=== PATIENT | female | born 1975 | race African-American/Black ===

== ENCOUNTER 2021-10-16 11:39 | Emergency (ER) | payer BC, SELFPAY ==
[2021-10-16 11:46] VITALS: BP 129/87; PULSE 90; RESP 18; O2SAT 100
--- NOTE | 2021-10-16 12:41 | ECG_ITS ---
Measurements Intervals [place] Rate: 69 P: 60 MA: 100 QRS: 45 QRSD: 101 T: 41 QT: 400 QTc: 431 Interpretive Statements SINUS RHYTHM WITH SHORT MA INTERVAL INCOMPLETE RIGHT BUNDLE BRANCH BLOCK LOW QRS VOLTAGE IN PRECORDIAL LEADS BORDERLINE ECG Electronically Signed On 10-16-2021 13:40:36 LINE [employer]ER by Rachid Ro D.O.
[2021-10-16 13:10] LABS: Basophils Percent Auto 0.4 % (0.2-1.2); Eosinophils Percent Auto 0.6 % (0-4.4); Hematocrit 35.6 % (37.0-47.0); Hemoglobin 12.3 g/dL (12.0-15.0); Immature Granulocyte Absolute 0.01 K/mm3 (0.00-0.031); Immature Granulocyte Percent A 0.2 % (0-0.5); Lymphocytes Absolute Auto 1.93 K/mm3 (0.9-3.2); Lymphocytes Percent Auto 41.5 % (18.3-44.2); Mean Corpuscular HGB Conc 34.6 g/dl (32-36); Mean Corpuscular Hemoglobin 30.1 pg (26-34); Mean Corpuscular Volume 87.3 fl (80-100); Mean Platelet Volume 10.6 fl (7.4-10.4); Monocytes Absolute Auto 0.4 K/mm3 (0.1-0.6); Monocytes Percent Auto 8.8 % (2.6-8.5); Neutrophils Absolute Auto 2.3 K/mm3 (1.3-6.7); Neutrophils Percent Auto 48.5 % (45.5-73.1); Platelet Count Result 225 k/mm3 (150-375); Red Blood Count 4.08 M/mm3 (4.2-5.4); Red Cell Distribution Width 13.2 % (11.5-14.5); White Blood Count 4.7 K/mm3 (4.5-10.0)
[2021-10-16 13:23] LABS: Alanine Aminotransferase 15 U/L (4-35); Albumin Level 3.9 g/dL (3.5-5.1); Alkaline Phosphatase 50 U/L (38-126); Anion Gap 6 mmol/L (8-16); Aspartate Amino Transferase 25 U/L (14-36); Bilirubin,Total 0.9 mg/dL (0.2-1.3); Blood Urea Nitrogen 13 mg/dL (7-17); Calcium 9.1 mg/dL (8.4-10.2); Carbon Dioxide 26 mmol/L (22-30); Chloride 103 mmol/L (98-107); Estimated Glomerular Filt Rate > 60; Glucose 81 mg/dL (65-110); Sodium 135 mmol/L (137-145)
--- NOTE | 2021-10-22 16:29 | ED.GENADULT ---
HPI - General Adult General Chief complaint: Weakness Stated complaint: syncope 10/13 Time Seen by Provider: 10/16/21 11:51 Source: patient Mode of arrival: ambulatory Limitations: no limitations History of Present Illness HPI narrative: 45-year-old with a history of anemia, recurrent syncopal episodes here with complaints of feeling weak for last 3 to 4 days. Patient states that she had a syncopal episode last night. She denied any fever or chills no history of nausea or vomiting. She states that she received blood transfusion years ago . Patient states that she had seen her primary doctor for syncopal episode in the past but does not remember the name of the doctor. She also states that she had a stress test for her chest pain which was negative which was done several years ago. Patient presently denies any nausea, vomiting or diarrhea or abdominal pain. Onset (ago): day(s) (3) Location: chest Severity: mild Quality: aching Pain Consistency: intermittent Relieving factors: none Exacerbating factors: none Associated symptoms: syncope Related Data Allergies Allergy/AdvReac Type Severity Reaction Status Date / Time No Known Allergies Allergy Mild Verified 08/06/18 09:35 Review of Systems Review of Systems: All systems reviewed & are unremarkable except as noted in HPI and below Constitutional: Constitutional: Reports no additional constitutional complaints Eyes: Eyes: Reports no additional eye complaints ENT: Reports system reviewed and no additional complaints, except as documented Cardiovascular: Cardiovascular: Reports chest pain Respiratory: Respiratory: Reports no additional respiratory complaints Gastrointestinal: Gastrointestinal: Reports no additional gastrointestinal complaints Musculoskeletal: Musculoskeletal: Reports no additional musculoskeletal complaints Integumentary/Breasts: Skin/Breast: Reports system reviewed and no additional complaints, except as docu Neurologic: Reports system reviewed and no additional complaints, except as documented Psychiatric: Psychiatric: Reports no additional psychiatric complaints Hematologic/Lymphatic: Hematologic/Lymphatic: Reports no additional hematologic/lymphatic complaints Exam Narrative: GENERAL: Well-appearing, well-nourished, and in no acute distress. HEAD: Normocephalic, atraumatic. EYES: PERRLA and EOMI. NECK: Supple. CHEST: Clear to auscultation. No respiratory distress. HEART: Regular rate and rhythm. No murmur heard. Normal peripheral pulses. ABDOMEN: Soft, nontender, nondistended, normal active bowel sounds. EXTREMITIES: Normal range of motion. No edema. SKIN: Warm, dry, no rash. NEURO: No focal deficits. Alert and oriented x3. PSYCH: Normal mood and affect. Course Course Emergency Course: Inform patient about her lab work, EKG findings. Patient is informed that hemoglobin is normal does not need blood transfusion. Recommended her to follow-up with her primary doctor I also did give her cardiology number for possible Holter monitor. Patient did understand the instructions. Vital Signs Vital signs: Vital Signs Pulse Rate 90 10/16/21 11:46 Respiratory Rate 18 10/16/21 11:46 Blood Pressure 129/87 10/16/21 11:46 Pulse Oximetry 100 10/16/21 11:46 Pulse Rate 90 10/16/21 11:46 Respiratory Rate 18 10/16/21 11:46 Blood Pressure 129/87 10/16/21 11:46 Pulse Oximetry 100 10/16/21 11:46 Medical Decision Making Vital Signs Vital Signs: Vital Signs Pulse Rate 90 10/16/21 11:46 Respiratory Rate 18 10/16/21 11:46 Blood Pressure 129/87 10/16/21 11:46 Pulse Oximetry 100 10/16/21 11:46 Pulse Rate 90 10/16/21 11:46 Respiratory Rate 18 10/16/21 11:46 Blood Pressure 129/87 10/16/21 11:46 Pulse Oximetry 100 10/16/21 11:46 Lab Data Result diagrams: 10/16/21 12:58 10/16/21 12:58 Labs: Lab Results 10/16/21 10/16/21 Range/Units 12:58 12:58 WBC 4.7
== END 2021-10-16 14:40 | disposition home or self-care (01) ==
PROVIDERS: Emergency Provider Family Medicine
DX: R53.1 Weakness (principal); R55 Syncope and collapse; D64.9 Anemia, unspecified; I45.10 Unspecified right bundle-branch block
CPT/HCPCS: 36415; 80053; 85025; 93005; 99284